=== PATIENT | female | born 1965 | race Caucasian/White ===

== ENCOUNTER 2018-06-17 19:47 | Emergency (ER) | payer BC ==
[2018-06-17 21:16] VITALS: BP 112/67
--- NOTE | 2018-06-17 21:38 | UC ---
General HPI - HPI Summary HPI Summary: 06/15/18 DEVELOPED A SUDDEN HEADACHE, SORE THROAT, COUGH WITH CONGESTION AND BODYACHES. SHE HAD A ROUTINE APPT WITH HER PCP FOR RINGING IN HER EARS ON 06/16/18 SO THEY CHECKED HER FOR THE FLU AND IT WAS NEGATIVE. SHE COMES IN FOR ONGOING S/S' WITH THE HEADACHE AND SORE THROAT BEING THE WORST. NO CP,SOB OR HX OR ASTHMA. - History of Current Complaint Chief Complaint: UCGeneralIllness Stated Complaint: FEVER/SORE THROAT/HEADACHE Time Seen by Provider: 06/17/18 21:31 Hx Obtained From: Patient Hx Last Menstrual Period: N/A Onset/Duration: Sudden Onset Timing: Constant Pain Intensity: 7 Associated Signs & Symptoms: Negative: Abdominal Pain, Diarrhea, Dysuria, Vomiting - Allergy/Home Medications Allergies/Adverse Reactions: Allergies Allergy/AdvReac Type Severity Reaction Status Date / Time No Known Allergies Allergy Verified 06/17/18 21:16 Home Medications: Home Medications Escitalopram Oxalate [Lexapro 20 mg] 20 mg PO BEDTIME 06/17/18 [History Confirmed 06/17/18] Ibuprofen TAB* [Advil TAB*] 400 mg PO Q6H PRN 06/17/18 [History Confirmed ] medroxyPROGESTERone TAB* [Provera TAB*] 10 mg PO SEE INSTRUCTIONS 06/17/18 [ History Confirmed 06/17/18] PMH/Surg Hx/FS Hx/Imm Hx Psychological History: Depression - Surgical History Surgical History: Yes Surgery Procedure, Year, and Place: 2 c-sections. 2 foot surgeries - Family History Known Family History: Positive: Non-Contributory - Social History Occupation: Employed Full-time Alcohol Use: Occasionally Substance Use Type: None Smoking Status (MU): Never Smoked Tobacco - Immunization History Vaccination Up to Date: Yes Review of Systems All Other Systems Reviewed And Are Negative: Yes Constitutional: Positive: Fever ENT: Positive: Sore Throat Respiratory: Positive: Cough Musculoskeletal: Positive: Myalgia Neurological: Positive: Headache Is Patient Immunocompromised?: No Physical Exam Triage Information Reviewed: Yes Appearance: Ill-Appearing - BUT NON TOXIC Vital Signs: Initial Vital Signs Temp 98.9 F 06/17/18 21:12 Pulse 84 06/17/18 21:12 Resp 16 06/17/18 21:12 BP 112/67 06/17/18 21:12 Pulse Ox 99 06/17/18 21:12 Vital Signs Reviewed: Yes Eyes: Positive: Conjunctiva Clear ENT: Positive: Pharyngeal erythema - SLIGHT, TMs normal. Negative: Nasal drainage Neck: Positive: Supple, Nontender, No Lymphadenopathy Respiratory: Positive: Lungs clear, Normal breath sounds, No respiratory distress, Other: - COUGH IS CONGESTED Cardiovascular: Positive: RRR, No Murmur Abdomen Description: Positive: Nontender, No Organomegaly, Soft Bowel Sounds: Positive: Present Musculoskeletal: Positive: ROM Intact Neurological: Positive: Alert Psychological: Positive: Age Appropriate Behavior Skin Exam: Normal Course/Dx - Course Course Of Treatment: RAPID STREP=NEG - Differential Dx - Multi-Symptom Differential Diagnoses: Other - NON TOXIC. NO CONCERN FOR BACTERIAL INFECTION. S /S'S SIMILAR TO LOCAL INFLUENZA DESPITE NEGATIVE TEST AT PCP. [place] SUPPORTIVE - Diagnoses Provider Diagnosis: Influenza-like illness Discharge - Sign-Out/Discharge Documenting (check all that apply): Patient Departure All imaging exams completed and their final reports reviewed: No Studies - Discharge Plan Condition: Stable Disposition: HOME Patient Education Materials: Influenza (DC) Forms: *Work Release Referrals: Elda Lewis MD [Primary Care Provider] - 5 Days Additional Instructions: FOLLOW UP WITH PRIMARY CARE IF NOT BETTER WITHIN 5 DAYS OR SOONER IF WORSE. - Billing Disposition and Condition Condition: STABLE Disposition: Home - Attestation Statements Provider Attestation: Per institutional requirements, I have reviewed the chart, however, I was not consulted specifically or made aware of this patient by the midlevel provider. I did not personally evaluate, interact with , or disposition this patient.
== END 2018-06-17 22:02 | disposition home or self-care (01) ==
LOC: UCCORT 19:47
DX: J11.1 Influenza due to unidentified influenza virus with other respiratory manifestations (principal); F32.9 Major depressive disorder, single episode, unspecified; Z79.899 Other long term (current) drug therapy
CPT/HCPCS: 87651; 99211; G0463